=== PATIENT | male | born 1975 | race Caucasian/White ===

== ENCOUNTER 2017-06-24 15:35 | Emergency (ER) | payer OTHER ==
[2017-06-24] MEDS ORDERED: KETOROLAC 15 MG/1 ML SDV ONE (15:50)
[2017-06-24] MEDS ORDERED: ONDANSETRON 4 MG/2 ML VIAL ONE (15:50)
[2017-06-24] MEDS: KETOROLAC 15 MG/1 ML SDV IVP ONE ×2 (15:56→18:01)
[2017-06-24] MEDS: ONDANSETRON 4 MG/2 ML VIAL IVP ONE (15:56)
--- NOTE | 2017-06-24 16:22 | EDPHY ---
H & P Stated Complaint: abd pain Time Seen by Provider: 06/24/17 16:11 HPI/ROS: CHIEF COMPLAINT: Flank pain HISTORY OF PRESENT ILLNESS: The patient is a 41 y/o male complaining of sudden acute left flank pain onset at 12:30, almost 4 hours ago. His entire family has been ill with cold symptoms including nasal congestion, fatigue and fever this week. His URI symptoms began on Wednesday, 2 days ago, and have most resolved today. He went to work this morning feeling fairly back to normal. He ate pizza at lunch and shortly afterwards had sudden onset of severe left flank pain. Ten minutes after onset he developed "violent" vomiting. The pain radiated towards his LLQ and he had associated dysuria. No fever. His pain has completely resolved with Toradol IV upon my assessment. He has no personal history of kidney stones, but his father has a history of kidney stones. REVIEW OF SYSTEMS: Constitutional: No fever or chills now Eyes: No visual changes ENT: No sore throat now Respiratory: lingering cough, no shortness of breath Cardiac: No chest pain Gastrointestinal: see HPI Genitourinary: No hematuria, +dysuria Musculoskeletal: No leg pain or swelling Skin: No rash Neurological: No headache, no numbness, no weakness Psychiatric: No depression - Personal History Current Tetanus/Diphtheria Vaccine: Unsure Current Tetanus Diphtheria and Acellular Pertussis (TDAP): Unsure - Medical/Surgical History PMH: Bilateral hernia repairs Father has kidney stones Hx Asthma: No Hx Chronic Respiratory Disease: No Hx Diabetes: No Hx Cardiac Disease: No Hx Renal Disease: No Hx Cirrhosis: No Hx Alcoholism: No Hx HIV/AIDS: No Hx Splenectomy or Spleen Trauma: No Other PMH: FAZAL inguinal hernia repair - Social History Smoking Status: Never smoked Additional Social History: with 3 kids. Employed as [employer]. Lives in [place]. Nonsmoker. - Physical Exam Exam: General Appearance: Alert, no distress (after IV Toradol) Eyes: Pupils equal and round, no conjunctival pallor or injection ENT, Mouth: Mucous membranes moist Neck: Normal inspection Respiratory: Lungs are clear to auscultation Cardiovascular: Regular rate and rhythm Gastrointestinal: Abdomen is soft and non-tender Back: no CVAT Neurological: A&O, nonfocal, normal gait Skin: Warm and dry Extremities: normal inspection Psychiatric: Mood and affect normal Constitutional: Initial Vital Signs Temperature (C) 36.5 C 06/24/17 15:38 Heart Rate 70 06/24/17 15:38 Respiratory Rate 20 06/24/17 15:38 Blood Pressure 146/100 H 06/24/17 15:38 O2 Sat (%) 97 06/24/17 15:38 O2 Delivery Mode Room Air Allergies/Adverse Reactions: No Known Allergies Allergy (Unverified 06/24/17 15:37) Home Medications: Medication Instructions Recorded Hydrocodone/APAP 5/325 [Eaton 1 - 2 tab PO Q4H PRN #15 tab 06/24/17 5/325 (*)] Ondansetron Odt [Zofran Odt 4 mg 4 mg PO Q4 PRN #6 tab 06/24/17 (*)] Tamsulosin HCl [Flomax 0.4 MG (RX)] 0.4 mg PO DAILY #4 cap 06/24/17 Medical Decision Making - Diagnostics Imaging: Discussed imaging studies w/ will call clerk Radiologist, I viewed and interpreted images myself ED Course/Re-evaluation: This is a normally healthy 41 y/o male who presents with a 4-hour history of acute onset severe left flank pain and vomiting. He received 15mg IV Toradol and 4mg IV Zofran upon arrival here, which completely resolved his symptoms. His exam is unremarkable. He is afebrile. Plan for basic labs, UA, symptom management, and abdominal CT. 1L IV NS administered. CT reveals distal left ureteral calculus about 1 cm above the UVJ measuring 4 x 3.5 x 3 mm. 1745: Reassessed patient and discussed findings. He has a fairly large distal left uretal stone. His labs are unremarkable. His abdomen remains benign and his pain is completely controlled. He will be discharged with standard kidney stone care and follow up instructions. He's been given scripts for Flomax, Zofran, and Eaton. He understands he should contact his insurance to determine appropriate followup and has been referred to a local urologist. Return precautions discussed. He is comfortable with this plan. Differential Diagnosis: Differential diagnosis includes though it is not limited to appendicitis, cholecystitis, diverticulitis, pyelonephritis, bowel perforation, small bowel obstruction. - Data Points Laboratory Results: Laboratory Results 06/24/17 15:50 06/24/17 15:50 Medications Given: Discontinued Medications Sodium Chloride (Ns) 1,000 mls @ 0 mls/hr IV EDNOW ONE; Wide Open PRN Reason: Protocol Stop: 06/24/17 16:24 Last Admin: 06/24/17 16:47 Dose: 1,000 mls Ketorolac Tromethamine (Toradol) 15 mg IVP EDNOW ONE Stop: 06/24/17 15:52 Last Admin: 06/24/17 15:56 Dose: 15 mg Ketorolac Tromethamine (Toradol) 15 mg IVP EDNOW ONE Stop: 06/24/17 17:59 Last Admin: 06/24/17 18:01 Dose: 15 mg Ondansetron HCl (Zofran) 4 mg IVP EDNOW ONE Stop: 06/24/17 15:52 Last Admin: 06/24/17 15:56 Dose: 4 mg Departure - Departure Disposition: Home, Routine, Self-Care Clinical Impression: Left ureteral calculus Condition: Good Instructions: Hydrocodone/Acetaminophen (By mouth), Ondansetron (By mouth), Tamsulosin (By mouth), Kidney Stones (ED), How to Strain Your Urine (ED) Additional Instructions: 1. Take 800mg ibuprofen every 6-8 hours for pain over the next few days. You received a similar medication while in the ED today, so do not take another dose until before you go to sleep. 2. Use Zofran as prescribed if needed for nausea and vomiting. 3. Take Flomax as prescribed. 4. Increase fluid intake. 5. Use Eaton as prescribed when needed for severe pain not controlled by ibuprofen. 6. Strain your urine as directed. 7. Follow up with urology in the next 2-3 days. You've been referred to Dr. Sy locally, but because you have [facility] insurance I recommend calling them first as they may want you to stay in their network. 8. Return to the ED for worsening of condition. Referrals: [facility] [Provider Group] - As per Instructions Mel Sy MD [Medical Doctor] - As per Instructions AVIVA HALEY [Other] - As per Instructions Prescriptions: Hydrocodone/APAP 5/325 [Eaton 5/325 (*)] 1 - 2 tab PO Q4H PRN #15 tab PRN Reason: Pain, Moderate Ondansetron Odt [Zofran Odt 4 mg (*)] 4 mg PO Q4 PRN #6 tab PRN Reason: Nausea Tamsulosin HCl [Flomax 0.4 MG (RX)] 0.4 mg PO DAILY #4 cap Report Scribed for: Tatyana Hidalgo Report Scribed by: Roseline Bo Date of Report: 06/24/17 Time of Report: 16:22 Physician Review and Approval Statement: 06/24/17 16:22 Portions of this note were transcribed by a medical billing representative. I personally performed a history, physical exam, medical decision making, and confirmed accuracy of information the transcribed note.
[2017-06-24 16:32] LABS: % IMMATURE GRANULYOCYTES 0.2 % (0.0-1.1); ABSOLUTE IMMATURE GRANULOCYTES 0.02 10^3/uL (0.00-0.10); ADD DIFF? NO; ADD MORPH? NO; ADD SCAN? NO; ATYPICAL LYMPHOCYTE FLAG 10 (0-99); FRAGMENT RBC FLAG 0 (0-99); HEMATOCRIT 46.1 % (40.0-51.0); HEMOGLOBIN 16.3 g/dL (13.7-17.5); LEFT SHIFT FLG 0 (0-99); LIPEMIA HEMOLYSIS FLAG 90 (0-99); MEAN CELL HEMOGLOBIN 31.5 pg (27.9-34.1); MEAN CELL HEMOGLOBIN CONCENTR. 35.4 g/dL (32.4-36.7); MEAN PLATELET VOLUME 9.1 fL (8.7-11.7); PLATELET CLUMPS FLAG 10 (0-99); PLATELET COUNT 293 10^3/uL (150-400); RED BLOOD CELL COUNT 5.18 10^6/uL (4.40-6.38); RED CELL DISTRIBUTION WIDTH 11.9 % (11.5-15.2)
[2017-06-24 16:37] LABS: ANION GAP 16 mEq/L (8-16); CALCIUM 10.1 mg/dL (8.5-10.4); CARBON DIOXIDE 23 mEq/l (22-31); CHLORIDE 105 mEq/L (97-110); CREATININE 1.2 mg/dL (0.7-1.3); GLOMERULAR FILTRATION RATE > 60; GLUCOSE 118 mg/dL (70-100); POTASSIUM 4.4 mEq/L (3.5-5.2); SODIUM 144 mEq/L (134-144)
[2017-06-24] MEDS: NS 1,000 ML IV ONE (16:47)
[2017-06-24 18:17] VITALS: BP 157/100; PULSE 64; RESP 16; TEMP 98.1; O2SAT 95
== END 2017-06-24 18:16 | disposition home or self-care (01) ==
DX: N20.1 Calculus of ureter (principal); E86.9 Volume depletion, unspecified
CPT/HCPCS: 96374; J1885; J2405